=== PATIENT | male | born 1950 | race Caucasian/White ===

== ENCOUNTER 2018-10-17 19:28 | Emergency (ER) | payer MEDICARE, MEDICAID, SELFPAY ==
[2018-10-17 19:28] VITALS: BP 147/89; PULSE 112; RESP 22; TEMP 36.8; O2SAT 95; BMI 35.2
--- NOTE | 2018-10-17 20:02 | ED.VISSUMM ---
- ER Visit Summary Date of Service: 10/17/18 Chief Complaint: Abscess History of Present Illness: The patient is a 67 M abscess right upper back 3 days. No fevers. No history of diabetes. Small wounds other areas before. Reports children tried to express yesterday noting exudative drainage. Size is smaller. However painful after manipulation. Ibuprofen taken at noon. Serosanguineous drainage. Physical Examination: General: Alert and oriented ?3, no acute distress HEENT: Normocephalic, atraumatic. Moist mucosa membranes Neck: supple, nontender. Cardiovascular: Regular rate and rhythm, no murmurs Respiratory: Normal breath sounds, symmetric, no distress Abdomen: Soft, nontender, nondistended Extremities: Nontender, no edema, pulses intact ?4 Neuro: no focal neurological deficits. Skin: Upper right back: 3 cm circular erythema there is a 1.5 cm induration there is opens sore, serous drainage. Test Results: [] Emergency Department Course and Treatment: Bedside ultrasound performed noted fluid pocket in the middle of wound. Discussed incision and drainage with verbal consent. Cruciate incision performed, there is noted to be cheesy output concerning first sebaceous cysts. Wound care discussed. Will be placed on Keflex for concerns of infectious sebaceous cyst. He will follow-up with his PCP for wound check as an outpatient. Continue Motrin. All questions were answered. Treatment Plan: [] Disposition: Discharge Impression: Infected sebaceous cyst status post I&D by ED physician This note was generated with [employer] dictation software. It may contain incorrect words, spelling, and punctuation that were not noted in review of the chart prior to signing ED Disposition - Plan for ED Patient: Disposition: Home or Assisted Living Diagnosis: Infected sebaceous cyst of skin Instructions: ED Cyst Sebaceous Infec IandD Prescriptions: Cephalexin [Keflex] 500 mg PO Q6 #40 capsule Referrals: Balwinder Rader DO [Primary Care Provider] - 3-5 Days
[2018-10-17 21:10] VITALS: BP 148/78; PULSE 88; RESP 16; O2SAT 94
[2018-10-17] MEDS: Cephalexin 250 MG Capsule 500 MG PO (21:11)
== END 2018-10-17 21:12 | disposition home or self-care (01) ==
PROVIDERS: Emergency Provider Emergency Medicine; Family Provider Student in an Organized Health Care Education/Training Program; PCP Student in an Organized Health Care Education/Training Program
DX: L72.3 Sebaceous cyst (principal); Z79.01 Long term (current) use of anticoagulants; Z79.899 Other long term (current) drug therapy
CPT/HCPCS: 10060; 99284

== ENCOUNTER 2019-03-10 09:20 | Emergency (ER) | payer MEDICARE, MEDICAID, SELFPAY ==
[2019-03-10 09:20] VITALS: BP 168/91; PULSE 112; RESP 16; TEMP 36.7; O2SAT 99; BMI 37.3
--- NOTE | 2019-03-10 09:54 | ED.VIS.GEN ---
History of Present Illness Informant: Patient Onset: Weeks - 1 week Context: Gradual Onset Timing: Continuous Quality: aching Location: back Current Severity: Moderate Maximum Severity: Severe Worsened by: palpation Relieved by: nothing Associated Symptoms: denies Narrative: 68-year-old male presents with an abscess on his back that is been getting worse for a week. He has had these in the past. Feels similar. No fevers. Some very mild spontaneous drainage. Denies any other review of systems. Prior similar symptoms: Yes Recent Illness/Hospitalization: No <Tanner Galvan - Last Filed: 03/10/19 09:54> <Francesco Patton - Last Filed: 03/10/19 13:21> Chief Complaint: Abscess Past Medical History Prior records reviewed: Yes Past Medical History: - - HTN Surgical History: - - I&D of abscess Lives: With Family Smoking Status: Current some day smoker <Tanner Galvan - Last Filed: 03/10/19 09:54> <Francesco Patton - Last Filed: 03/10/19 13:21> - Allergies and Home Meds Allergies/Adverse Reactions: Allergies Penicillins [PCN] Allergy (Verified 10/17/18 19:30) Anaphylaxis Tetanus Vaccines and Toxoid [Tetanus Vaccines & Toxoid] Allergy (Verified 10/17/18 19:30) Anaphylaxis Primary Care Physician: Balwinder Rader DO [Primary Care Provider] - Review of Systems All systems negative except as indicated General: Denies: Chills, Fever Skin: Reports: Abscess <Tanner Galvan - Last Filed: 03/10/19 09:54> Physical Exam Vital Signs/Narrative: Vital Signs Temp Pulse Resp BP Pulse Ox 03/10/19 09:20 98.1 F 112 H 16 168/91 H 99 Inital Vital Signs reviewed: Yes General: Well nourished, Well developed Head: Normocephalic, Atraumatic Eyes: Perrl, EOMI ENT: Moist mucous membranes Neck: Supple, Nontender Cardiovascular: Regular rate, Regular rhythm Respiratory: No distress, CTA bilaterally, Chest nontender Abdomen: Soft, Nontender, Nondistended, Normal bowel sounds, No masses Back: Nontender Extremities: Nontender, No edema Skin: Normal color, No rash, - - 4 x 5 cm abscess left thoracic back lateral to the spine. It is indurated and fluctuant. There is some surrounding cellulitis. No active drainage on my exam. Neurological: Alert, Oriented x3 <Tanner Galvan - Last Filed: 03/10/19 09:54> Diagnostic/Tx/Re-eval - Medical Decision Making Incision and drainage was performed. Under sterile conditions with Betadine prep lidocaine with epinephrine was used locally for anesthesia. A total of 3 cc was used. #11 blade scalpel was used for a cruciate incision. There is a moderate amount of purulent drainage. It was thoroughly irrigated as well as deloculated. Dressing was placed. Patient is penicillin allergic. Will place on Bactrim. He will continue proper wound care which we discussed. Worsening signs of infection were given and he was advised to monitor for these. He was discharged <Tanner Galvan - Last Filed: 03/10/19 09:54> - Medical Decision Making I saw the patient in conjunction with the physician biology laboratory assistant. He has an abscess on his back. It is draining pus. He had these before. No other associated symptoms. Exam shows a abscess with surrounding erythema. This is draining pus. Incision and drainage was performed by the physician biology laboratory assistant. He was antibiotics. He will follow-up with his doctor for recheck. <Francesco Patton - Last Filed: 03/10/19 13:21> ED Disposition <Tanner Galvan - Last Filed: 03/10/19 09:54> <Francesco Patton - Last Filed: 03/10/19 13:21> - Plan for ED Patient: Disposition: Home or Assisted Living Diagnosis: Abscess of back Instructions: ABSCESS, Incision and Drainage Prescriptions: Smz/Tmp Ds [Bactrim Ds] 1 tab PO BID #10 tab Prescription Printed Referrals: Balwinder Rader DO [Primary Care Provider] -
== END 2019-03-10 10:19 | disposition home or self-care (01) ==
LOC: ED 10:18
PROVIDERS: Emergency Provider Physician Assistant Medical; Family Provider Student in an Organized Health Care Education/Training Program; PCP Student in an Organized Health Care Education/Training Program
DX: L02.212 Cutaneous abscess of back [any part, except buttock and flank] (principal); I10 Essential (primary) hypertension; F17.200 Nicotine dependence, unspecified, uncomplicated; Z88.0 Allergy status to penicillin; Z79.01 Long term (current) use of anticoagulants; Z79.899 Other long term (current) drug therapy
CPT/HCPCS: 10060; 99282

== ENCOUNTER 2020-01-19 18:48 | Emergency (ER) | payer MEDICARE, MEDICAID, SELFPAY ==
[2020-01-19 18:49] VITALS: BP 146/93; PULSE 114; RESP 24; TEMP 37.1; O2SAT 93
[2020-01-19 18:50] VITALS: BP 146/93; PULSE 114; RESP 24; TEMP 37.1; O2SAT 94; BMI 38.2
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
--- NOTE | 2020-01-19 20:54 | ED.DCSUM_ITS ---
- ER Visit Summary Date of Service: 01/19/20 Chief Complaint: Overdose History of Present Illness: The patient is a [address] Rader. He reports that he uses heroin approximately once a month. He had what he thought was heroin delivered tonight and snorted a little line. Next thing he knew he was on the way here by EMS. He received Narcan on the way in and is now alert and appropriate. On review of systems patient planes of chills and nausea. He denies any other complaints. He adamantly denies any IV drug abuse. He reports that he lives with his son and his girlfriend. He states that the girlfriend does have children and they were present in the home when this occurred. Physical Examination: Vitals: Stable. Afebrile. General: Well-nourished and well-developed. Head: Normocephalic atraumatic. Neck: Supple, no lymphadenopathy. No JVD. Nontender. Cardiovascular: Tachycardic regular rhythm. No murmurs. Respiratory: No respiratory distress. Clear to auscultation bilaterally. Abdominal: Soft, nontender, nondistended, normal bowel sounds. No guarding, rebound, or peritoneal signs. Back: Nontender. Extremities: Nontender, no edema. Skin: Normal color, no rash. Neurologic: Alert and oriented ?3. Cranial nerves II through XII are intact. Normal strength and sensation. Psych: Normal affect. Emergency Department Course and Treatment: Patient was observed over the course of 2 hours in the emergency department. He has not had a change in mental status as the Narcan is worn off. Treatment Plan: Patient does not want help with his drug abuse. He will be discharged instructions to follow-up with [facility] soon as possible. Return to the emergency department for any worsening symptoms. Disposition: To home in improved and stable condition. Impression: 1 1. Opiate overdose. This note was generated with [employer] dictation software. It may contain incorrect words, spelling, and punctuation that were not noted in review of the chart tawana or to signing ED Disposition - Plan for ED Patient: Disposition: Home or Assisted Living Instructions: ED Overdose Opiate Referrals: [facility] [STAFF PHYSICIAN] - As soon as possible
[2020-01-19 21:07] VITALS: BP 137/89; PULSE 115; RESP 17; O2SAT 95
== END 2020-01-19 21:05 | disposition home or self-care (01) ==
PROVIDERS: Emergency Provider Emergency Medicine; PCP Student in an Organized Health Care Education/Training Program
DX: T40.601A Poisoning by unspecified narcotics, accidental (unintentional), initial encounter (principal); R00.0 Tachycardia, unspecified; R11.0 Nausea; Y92.9 Unspecified place or not applicable; J44.9 Chronic obstructive pulmonary disease, unspecified; Z72.0 Tobacco use; Z79.01 Long term (current) use of anticoagulants; Z79.899 Other long term (current) drug therapy; Z85.46 Personal history of malignant neoplasm of prostate
CPT/HCPCS: 99285

== ENCOUNTER → 2020-09-11 06:55 | Outpatient (CLI) | payer MEDICARE, MEDICAID, SELFPAY ==
--- NOTE | 2020-09-11 18:08 | STRESSREP_ITS ---
Stress Test Report Pharmacologic myocardial perfusion stress test. 69-year-old man with a history of shortness of breath and abnormal EKG. Stress protocol: Resting KG demonstrates normal sinus rhythm with a rate of 96 bpm resting blood pressure 142/100 mmHg. 0.4 mg of regadenoson was infused per usual protocol followed by rapid intravenous saline flush injection continuous liquefied natural gas plant operator was performed. The maximum heart rate attained was 125 bpm which was 82% of max impacted heart rate the maximum workload was 1 metabolic equivalent. At rest there were no ST or T wave changes noted to suggest abnormal flow reserve. At peak infusion there were no ST or T wave changes noted to suggest abnormal flow reserve. The final blood pressure is 148/92 mmHg. Myocardial perfusion protocol. 14.6 mCi of technetium 99m sestamibi was injected at rest. 0.4 mg of regadenoson was infused per usual protocol. At peak infusion 44.7 mCi of technetium 99m sestamibi was injected stress images obtained stress and rest images were reconstructed and compared in the short axis vertical long and horizontal long axis. Gated images were also obtained. Perfusion SPECT analysis: Review of the stress images demonstrate normal uptake of tracer noted in all areas of myocardium except for small portion of the inferior wall with mildly reduced perfusion. This however appears to be similar in the inferior wall on the resting images as well. No obvious ischemia is noted. Previous infarct cannot be completely excluded. Gated SPECT analysis: The gated ejection fraction is 51%. Conclusion: Pharmacologic myocardial perfusion stress test with no obvious evidence of ischemia. Preserved ejection fraction.
== END ==
PROVIDERS: PCP Student in an Organized Health Care Education/Training Program; Referring Provider Nurse Practitioner Primary Care; Visit Provider Nurse Practitioner Primary Care
DX: R06.02 Shortness of breath (principal); R94.31 Abnormal electrocardiogram [ECG] [EKG]
CPT/HCPCS: 78452; 93017; A9500; A4216; J2785

== ENCOUNTER → 2020-09-30 20:00 | Outpatient (CLI) | payer MEDICARE, MEDICAID, SELFPAY | PROVIDERS: PCP Student in an Organized Health Care Education/Training Program; Referring Provider Nurse Practitioner Family; Visit Provider Nurse Practitioner Family | DX: G47.33 Obstructive sleep apnea (adult) (pediatric) (principal); F51.04 Psychophysiologic insomnia; R53.83 Other fatigue; R06.83 Snoring | CPT/HCPCS: 95810 ==